=== PATIENT | male | born 1960 | race Caucasian/White ===

== ENCOUNTER 2016-08-22 07:32 | Emergency (ER) | payer SELFPAY ==
[2016-08-22 07:36] VITALS: BP 159/94
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
[2016-08-22] MEDS ORDERED: Ibuprofen TAB* 600 MG PO ONE (09:50)
== END 2016-08-22 10:07 | disposition home or self-care (01) ==
LOC: ED 07:32
DX: M54.5 Low back pain (principal); F17.210 Nicotine dependence, cigarettes, uncomplicated; R20.9 Unspecified disturbances of skin sensation; M79.1 Myalgia
CPT/HCPCS: 99282; A9270-GY

== ENCOUNTER 2016-08-27 07:29 | Emergency (ER) | payer MEDICAID ==
[2016-08-27] MEDS ORDERED: oxyCODONE/Acetamin 5/325 MG* TAB PO ONE (07:55)
[2016-08-27] MEDS ORDERED: Methocarbamol TAB* 500 MG PO ONE (07:55)
[2016-08-27] MEDS ORDERED: Ketorolac INJ* 60 MG/2 ML VIAL IM ONE (07:56)
[2016-08-27] MEDS ORDERED: predniSONE TAB* 20 MG PO ONE (07:57)
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
[2016-08-27 10:27] VITALS: BP 147/97
== END 2016-08-27 10:25 | disposition home or self-care (01) ==
LOC: ED 07:29
DX: M54.40 Lumbago with sciatica, unspecified side (principal); Z72.0 Tobacco use; I10 Essential (primary) hypertension; Z86.19 Personal history of other infectious and parasitic diseases
CPT/HCPCS: 96372; 99282; A9270-GY; J1885; J7512

== ENCOUNTER 2016-09-09 19:38 | Emergency (ER) | payer MEDICAID ==
[2016-09-09 21:49] LABS: Hematocrit 44 % (42-52); Hemoglobin 14.6 g/dl (14.0-18.0); Mean Corpuscular HGB Conc 33 g/dl (31-36); Mean Corpuscular Hemoglobin 33 pg (27-31); Mean Corpuscular Volume 99 fL (80-94); Mean Platelet Volume 8 um3 (7.4-10.4); Red Blood Count 4.44 10^6/ul (4.0-5.4); Red Cell Distribution Width 13 % (10.5-15); White Blood Count 13.1 10^3/ul (3.5-10.8)
[2016-09-09 22:04] LABS: Albumin 4.3 g/dL (3.2-5.2); Calcium 9.1 mg/dL (8.6-10.3); EGFR African American 147.1 (>60); EGFR Non-African American 114.4 (>60); Globulin 2.6 g/dL (2-4); Potassium 3.6 mmol/L (3.5-5.0); Total Bilirubin 0.2 mg/dL (0.2-1.0); Total Protein 6.9 g/dL (6.4-8.9)
--- NOTE | 2016-09-09 22:59 | RAD ---
INDICATION: RIGHT lower extremity pain from the buttock to the ankle lateral aspect. COMPARISON: None. TECHNIQUE: Tucker scale, color Doppler, and spectral analysis of the deep veins of the RIGHT lower extremity. Vessel compression, phasicity, and augmentation assessed. REPORT: The RIGHT common femoral, great saphenous, profunda femoral, femoral, popliteal, peroneal, and posterior tibial veins are patent. Patency of the contralateral common femoral vein documented. IMPRESSION: No evidence for RIGHT lower extremity deep venous thrombosis.
--- NOTE | 2016-09-09 23:08 | RAD ---
Indication: RIGHT lower extremity pain from the buttock to the ankle along the lateral aspect. Comparison: None. Technique: RIGHT lower extremity arterial ultrasound. Report: Mild smooth margined noncalcified plaque visualized at the RIGHT common femoral artery with approximate 30% stenosis resulting. No hemodynamic significant stenosis evident from the RIGHT common femoral artery through the calf arteries. Patent profunda femoral, superficial femoral, popliteal, anterior tibial, peroneal, and posterior tibial arteries documented with normal triphasic waveforms. IMPRESSION: Mild atherosclerotic plaque at the RIGHT common femoral artery without hemodynamic significant stenosis resulting.
[2016-09-10] MEDS ORDERED: Ibuprofen TAB* 600 MG PO ONE (01:26)
[2016-09-10] MEDS ORDERED: Cyclobenzaprine TAB* 10 MG PO ONE (01:26)
[2016-09-10 01:41] VITALS: BP 107/71
--- NOTE | 2016-09-10 08:12 | RAD ---
Indication: Right leg numbness. CT of the brain was performed without IV contrast. Comparison is made with previous exam dated September 20, 2014. Ventricular structures are midline. No midline shift is noted. The extra-axial spaces are unremarkable. There is no evidence of intracranial mass or hemorrhage. No other high or low density lesions are identified. Mastoid air cells and paranasal sinuses are grossly unremarkable. Patient appears to have had internal fixation and cervical fusion seen on the cloth bleaching range tender images. IMPRESSION: No intracranial mass or hemorrhage is noted.
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
== END 2016-09-10 01:37 | disposition home or self-care (01) ==
LOC: ED 19:38
DX: M54.30 Sciatica, unspecified side (principal)
CPT/HCPCS: 36415; 70450; 80053; 85025; 85610; 85730; 93005; 99282; A9270-GY

== ENCOUNTER 2016-09-11 22:19 | Inpatient (IN) | payer MEDICAID ==
[2016-09-11 23:51] LABS: Hematocrit 43 % (42-52); Hemoglobin 14.6 g/dl (14.0-18.0); Mean Corpuscular HGB Conc 34 g/dl (31-36); Mean Corpuscular Hemoglobin 33 pg (27-31); Mean Corpuscular Volume 99 fL (80-94); Mean Platelet Volume 8 um3 (7.4-10.4); Red Blood Count 4.39 10^6/ul (4.0-5.4); Red Cell Distribution Width 13 % (10.5-15)
[2016-09-12 00:05] LABS: Albumin 4.4 g/dL (3.2-5.2); BUN/Creatinine Ratio 12.2 (8-20); Calcium 9.2 mg/dL (8.6-10.3); EGFR African American 140.2 (>60); Globulin 2.9 g/dL (2-4); Potassium 3.5 mmol/L (3.5-5.0); Total Bilirubin 0.4 mg/dL (0.2-1.0); Total Protein 7.3 g/dL (6.4-8.9)
[2016-09-12] MEDS: NS 0.9% 1000 ML* 1,000 ML IV SCH ×4 (02:07→23:42)
[2016-09-12] MEDS ORDERED: Ibuprofen TAB* 600 MG PO ONE (06:14)
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
--- NOTE | 2016-09-12 08:03 | RAD ---
HISTORY: Back pain, bilateral leg pain COMPARISONS: None TECHNIQUE: Multiple contiguous axial CT scans were obtained of the lumbar spine without intravenous contrast, with coronal and sagittal multiplanar reformations. FINDINGS: SPINAL CANAL: Evaluation of the central canal is limited on CT technique; however, there is no obvious canalicular mass or epidural hemorrhage. ALIGNMENT: There is trace retrolisthesis of L2 on L3. VERTEBRAL BODIES: There is diffuse osteopenia. Is multilevel anterolateral marginal osteophyte formation with sclerotic reactive endplate changes most pronounced at L4-L5 JOINTS: There is diffuse facet osteoarthritic change, most pronounced at L5-S1 and L4-L5 MUSCULATURE: Unremarkable INTERVERTEBRAL DISCS: There is diffuse loss of intervertebral disc height throughout the spine. AXIAL IMAGES: T12-L1: There is no osseous neural foraminal narrowing or central canal stenosis. L1-L2: There is no osseous neural foraminal narrowing or central canal stenosis. L2-L3: There is a left paracentral posterior osteophyte measuring 0.3 cm in depth. There is moderate bilateral neural foraminal narrowing. There is no osseous central canal stenosis. L3-L4: There is a central disc extrusion measuring approximately 0.7 cm in depth. There is bilateral facet hypertrophy. There is moderate bilateral neural foraminal narrowing. There is moderate to severe narrowing of the central canal. L4-L5: There is bilateral facet hypertrophy. There is marginal osteophyte formation at the neural foramina bilaterally. There is severe bilateral neuroforaminal narrowing. There is mild narrowing of the central canal. L5-S1: There is bilateral facet hypertrophy. There is no osseous neural foraminal narrowing or central canal stenosis. SOFT TISSUES: There is a radiopaque foreign body in the soft tissues posterior to the left L3-L4 facet joint consistent with history of penetrating trauma OTHER: None IMPRESSION: 1. DEGENERATIVE DISC DISEASE AND OSTEOARTHRITIS. 2. THERE IS A CENTRAL DISC EXTRUSION AT L3-L4. 3. THERE IS NARROWING OF THE CENTRAL CANAL AT L3-L4 AND L4-L5 DESCRIBED ABOVE. 4. THERE IS MULTILEVEL NEURAL FORAMINAL NARROWING DESCRIBED ABOVE,
[2016-09-12] MEDS ORDERED: Ketorolac INJ* 15 MG/ML 1 ML VIAL IV PUSH PRN (08:54)
[2016-09-12] MEDS ORDERED: Cyclobenzaprine TAB* 10 MG PO PRN (08:55)
[2016-09-12] MEDS ORDERED: Lidocaine PATCH 5%* 1 PATCH TRANSDERM SCH (09:00)
[2016-09-12] MEDS ORDERED: LORazepam TAB(*) 1 MG PO SCH (09:00)
[2016-09-12] MEDS: Multivitamins/Minerals TAB PO SCH (10:01)
[2016-09-12] MEDS: Enoxaparin(*) 40 MG/0.4 ML SYR SUBCUT SCH (10:01)
[2016-09-12] MEDS: Folic Acid TAB* 1 MG PO SCH (10:01)
[2016-09-12] MEDS: Acetaminophen TAB* 325 MG PO SCH ×3 (10:01→21:07)
[2016-09-12] MEDS: Thiamine TAB* 100 MG TAB PO SCH (10:01)
[2016-09-12] MEDS: Gabapentin CAP(*) 100 MG PO SCH ×3 (10:02→21:07)
--- NOTE | 2016-09-12 13:36 | HP ---
CC: Dr. Solomon HISTORY AND PHYSICAL: DATE OF ADMISSION: 09/12/16 PRIMARY CARE PHYSICIAN: Dr. Solomon. CHIEF COMPLAINT: Back pain. HISTORY OF PRESENT ILLNESS: Mr. Segundo is a 55-year-old male with past medical history of hypertension, who presents to the hospital with worsening of his ongoing back pain. The patient states his symptoms began about a week and a half ago, although he has been seen in the ED for this starting about 3 weeks ago. The patient states he has had pain in the low back that has been shooting down both legs and associated numbness and tingling in the legs. He cannot recall any inciting trauma that started this. He states he has never had pain like this before. He saw Dr. Solomon for this pain and he states he was given ibuprofen and cyclobenzaprine. On review of medications, it seems like he was also on a Medrol Dosepak as an outpatient as well as some oxycodone from the emergency department. He states that he has not had any improvement in his pain and continues to have numbness, tingling and is now having a significant difficulty walking. This is his fourth ED visit in the past 3 weeks. He denies any urinary symptoms associated with his pain. The pain originates in the low back and radiates down the legs. He initially felt it was worse on the right; however, today, it seems to be a little bit worse on the left. He states that he thought he had a steroid shot here in the emergency department; however, looking back into the system, it looks like this was probably an intramuscular Toradol, as he said he got it in the arm. The patient's alcohol level was noted to be high and he does endorse drinking somewhere between 2 to 4 beers daily. He denies any history of alcohol withdrawal symptoms. Denies any fever, chills, chest pain, shortness of breath, nausea, vomiting, abdominal pain, dysuria, headache, bleeding in the urine or in the bowels. PAST MEDICAL HISTORY: Hypertension. PAST SURGICAL HISTORY: Neck surgery after a fall down the stairs about a year and a half ago. ALLERGIES: The patient reports no known drug allergies. FAMILY HISTORY: Father was an alcoholic. His mother at 40 of unknown causes. SOCIAL HISTORY: Significant for 1 pack per day smoking for about 25 years. He states he will drink between 12 to 24 beers in a week, up to 3 to 4 in a day, but he states never more than that. No history of alcohol withdrawal symptoms. No illicit drug use. REVIEW OF SYSTEMS: A 12-point review of systems is negative except for that is noted in the HPI. PHYSICAL EXAMINATION GENERAL: Mr. Segundo is a 55-year-old male lying in bed in no apparent distress. VITAL SIGNS: On admission: Temperature 97.4, heart rate 97, respiratory rate 16, O2 saturation 97% on room air, blood pressure 134/88. HEENT: Pupils are equal, round, reactive to light and accommodation. Anicteric sclerae. Dry mucous membranes. LUNGS: With some faint wheezing appreciated diffusely with good air movement. CARDIOVASCULAR: Regular rate and rhythm. S1 and S2 present. No murmurs, gallops, or rubs. ABDOMEN: Soft, nontender, nondistended. Bowel sounds are positive. EXTREMITIES: No cyanosis, clubbing, or edema. MUSCULOSKELETAL: The patient reports no tenderness to palpation in the low back. No point tenderness over the spine. He has pain in the back with active leg raise on the left, none on the right. He has good strength in bilateral lower extremities. Reports diminished sensation and a tingly feeling on the right foot and lateral right calf, none in the thighs. Passive leg raise does not elicit any pain in either leg. DIAGNOSTIC STUDIES/LAB DATA: White blood cell count of 14, hematocrit of 43, platelets of 279. INR of 0.88. Sodium of 129, potassium of 3.5, chloride of 99 , carbon dioxide of 22, BUN of 9, creatinine of 0.74. LFTs within normal limits. Troponin of 0. Serum alcohol of 293. EKG personally reviewed shows normal sinus rhythm. CT of the lumbar spine shows degenerative disk disease and osteoarthritis and central disk extrusion at L3-L4, narrowing of the central canal at L3-L4 and L4-L5, multilevel neuroforaminal narrowing. Imaging from 09/09/[address] of the head that was negative, right lower extremity Doppler that was negative and a right lower extremity arterial study that showed a mild common femoral artery plaque. ASSESSMENT AND PLAN: Low back pain, likely due to spinal stenosis in a 55-year- old man with past medical history of hypertension and alcohol abuse. 1. Back pain, likely due to spinal stenosis. The patient has come repeatedly to the ED and seems to be having difficulty ambulating as an outpatient. I do not think there is any acute surgical needs at this time. He is supposed to be going to outpatient physical therapy today, but felt like he could not make it. We will order PT here in the hospital. We will start the patient on around- the-clock Tylenol, gabapentin, and Flexeril. We will also start a lidocaine patch. We will likely treat conservatively at this time. We will treat with Toradol 50 mg IV q.6 hours as needed for pain. We will also put the patient on a PPI at this time. 2. Alcohol abuse. Serum alcohol was 293 here in the hospital. The patient denies any history of alcohol withdrawal. We will monitor on [facility] protocol. We will start thiamine, folate, and multivitamin. 3. Hypertension. Blood pressures are stable at this time. We will hold on the patient's home lisinopril. 4. DVT prophylaxis: Lovenox subcu. 5. Code status: The patient is a full code. TIME SPENT: Total time spent on this admission was 45 minutes, with over half the time spent [id number] with the patient in counseling and coordinating care. [id number]/[facility] #: [id number] BEHZAD
[2016-09-12] MEDS: Lidocaine Patch REMOVE* 1 NOTE MISC SCH (22:00)
[2016-09-13] MEDS: Omeprazole CAP* 20 MG PO SCH (05:02)
[2016-09-13] MEDS: NS 0.9% 1000 ML* 1,000 ML IV SCH ×2 (06:29→13:23)
[2016-09-13 06:59] LABS: Hematocrit 39 % (42-52); Mean Corpuscular HGB Conc 34 g/dl (31-36); Mean Corpuscular Hemoglobin 34 pg (27-31); Mean Corpuscular Volume 99 fL (80-94); Mean Platelet Volume 8 um3 (7.4-10.4); Red Blood Count 3.88 10^6/ul (4.0-5.4); Red Cell Distribution Width 13 % (10.5-15); White Blood Count 7.6 10^3/ul (3.5-10.8)
[2016-09-13 07:15] LABS: BUN/Creatinine Ratio 13.5 (8-20); EGFR African American 140.2 (>60); Potassium 3.9 mmol/L (3.5-5.0)
[2016-09-13] MEDS: Folic Acid TAB* 1 MG PO SCH (09:44)
[2016-09-13] MEDS: Acetaminophen TAB* 325 MG PO SCH ×3 (09:44→20:26)
[2016-09-13] MEDS: Multivitamins/Minerals TAB PO SCH (09:44)
[2016-09-13] MEDS: Enoxaparin(*) 40 MG/0.4 ML SYR SUBCUT SCH (09:44)
[2016-09-13] MEDS: Gabapentin CAP(*) 100 MG PO SCH ×3 (09:44→20:26)
[2016-09-13] MEDS: Thiamine TAB* 100 MG TAB PO SCH (09:44)
[2016-09-13] MEDS ORDERED: chlordiazePOXIDE CAP* 25 MG PO PRN (16:17)
--- NOTE | 2016-09-13 16:23 | PN ---
Subjective Date of Service: 09/13/16 Interval History: Pain in back better. Pt states he was in rehab a long time ago. He feels he doesn't drink too much, only 1 or 2 6-packs a day, 2 when he is with friends. Objective Active Medications: Acetaminophen (Tylenol Tab*) 975 mg PO TID [facility] Last Admin: 09/13/16 13:39 Dose: 975 mg Chlordiazepoxide (Librium Cap*) 25 mg PO TID [facility] Chlordiazepoxide (Librium Cap*) 25 mg PO Q3H PRN PRN Reason: AGITATION/ANXIETY Cyclobenzaprine HCl (Flexeril Tab*) 10 mg PO TID PRN PRN Reason: SPASMS Enoxaparin Sodium (Lovenox(*)) 40 mg SUBCUT Q24H [facility] Last Admin: 09/13/16 09:44 Dose: 40 mg Folic Acid (Folvite Tab*) 1 mg PO DAILY [facility] Last Admin: 09/13/16 09:44 Dose: 1 mg Gabapentin (Neurontin Cap(*)) 200 mg PO TID [facility] Last Admin: 09/13/16 13:38 Dose: 200 mg Ketorolac Tromethamine (Toradol Inj*) 15 mg IV PUSH Q6H PRN PRN Reason: PAIN Lidocaine (Lidoderm 5% Patch*) 1 patch TRANSDERM .ON 0900 OFF AT 2100 [facility] Multivitamins/Minerals (Theragran/Minerals Tab*) 1 tab PO DAILY [facility] Last Admin: 09/13/16 09:44 Dose: 1 tab Omeprazole (Prilosec Cap*) 20 mg PO DAILY@0600 [facility] Last Admin: 09/13/16 05:02 Dose: 20 mg Pharmacy Profile Note (Lidocaine Patch Remove*) 1 note N/A 2099 [facility] Last Admin: 09/12/16 22:00 Dose: Not Given Thiamine HCl (Vitamin B-1 Tab*) 100 mg PO DAILY [facility] Last Admin: 09/13/16 09:44 Dose: 100 mg Vital Signs 09/12/16 09/12/16 09/12/16 17:01 19:34 20:00 Temperature 97.9 F 98.1 F Pulse Rate 91 90 Respiratory 18 22 20 Rate Blood Pressure 143/84 162/99 (mmHg) O2 Sat by Pulse 94 97 Oximetry 09/12/16 09/12/16 09/12/16 20:54 21:07 23:07 Temperature Pulse Rate 87 Respiratory 20 20 18 Rate Blood Pressure 155/96 (mmHg) O2 Sat by Pulse 95 Oximetry 09/12/16 09/13/16 09/13/16 23:20 00:59 03:18 Temperature 97.6 F 97.6 F 97.7 F Pulse Rate 88 82 81 Respiratory 16 16 16 Rate Blood Pressure 156/102 174/104 164/90 (mmHg) O2 Sat by Pulse 95 95 95 Oximetry 09/13/16 09/13/16 09/13/16 04:59 07:19 08:00 Temperature 97.8 F 97.4 F Pulse Rate 80 77 Respiratory 16 18 16 Rate Blood Pressure 151/101 155/94 (mmHg) O2 Sat by Pulse 96 97 Oximetry 09/13/16 09/13/16 09/13/16 09:23 09:44 11:21 Temperature Pulse Rate 83 87 Respiratory 16 16 Rate Blood Pressure 165/96 151/95 (mmHg) O2 Sat by Pulse 97 96 Oximetry 09/13/16 09/13/16 09/13/16 11:44 13:26 13:38 Temperature Pulse Rate 88 Respiratory 16 16 Rate Blood Pressure 150/102 (mmHg) O2 Sat by Pulse 97 Oximetry 09/13/16 13:45 Temperature Pulse Rate 87 Respiratory Rate Blood Pressure 152/97 (mmHg) O2 Sat by Pulse Oximetry Oxygen Devices in Use Now: None Appearance: Alert, partly up in bed. In good spirits. Looks comfortable. Eyes: No Scleral Icterus Ears/Nose/Mouth/Throat: Clear Oropharnyx, Mucous Membranes Moist Neck: NL Appearance and Movements; NL JVP, No Thyroid Enlargement, Masses Respiratory: Symmetrical Chest Expansion and Respiratory Effort, Clear to Auscultation, Clear to Percussion Extremities: No Clubbing, Cyanosis, - - R ankle sl bruised, sl swollen and painful Skin: No Rash or Ulcers, No Nodules or Sclerosis Neurological: Alert and Oriented x 3, NL Sensation - No tremor. Result Diagrams: 09/13/16 06:39 09/13/16 06:39 Additional Lab and Data: Lab Results 09/11/16 09/11/16 09/11/16 Range/Units 23:40 23:40 23:40 WBC 14.0 H (3.5-10.8) 10^3/ul RBC 4.39 (4.0-5.4) 10^6/ul Hgb 14.6 (14.0-18.0) g/dl Hct 43 (42-52) % MCV 99 H (80-94) fL MCH 33 H (27-31) pg MCHC 34 (31-36) g/dl RDW 13 (10.5-15) % Plt Count 279 (150-450) 10^3/ul MPV 8 (7.4-10.4) um3 Neut % (Auto) 75.0 (38-83) % Lymph % (Auto) 17.3 L (25-47) % Eddy % (Auto) 6.5 (1-9) % Eos % (Auto) 0.9 (0-6) % Baso % (Auto) 0.3 (0-2) % Absolute Neuts (auto) 10.5 H (1.5-7.7) 10^3/ul Absolute Lymphs (auto) 2.4 (1.0-4.8) 10^3/ul Absolute Monos (auto) 0.9 H (0-0.8) 10^3/ul Absolute Eos (auto) 0.1 (0-0.6) 10^3/ul Absolute Basos (auto) 0 (0-0.2) 10^3/ul Absolute Nucleated RBC 0.01 10^3/ul Nucleated RBC % 0 INR (Anticoag Therapy) 0.88 L (0.89-1.11) APTT 33.2 (26.0-36.3) seconds Sodium 129 L (133-145) mmol/L Potassium 3.5 (3.5-5.0) mmol/L Chloride 99 L (101-111) mmol/L Carbon Dioxide 22 (22-32) mmol/L Anion Gap 8 (2-11) mmol/L BUN 9 (6-24) mg/dL Creatinine 0.74 (0.67-1.17) mg/dL Est GFR ( Amer) 140.2 (>60) Est GFR (Non-Af Amer) 109.0 (>60) BUN/Creatinine Ratio 12.2 (8-20) Glucose 81 (70-100) mg/dL Calcium 9.2 (8.6-10.3) mg/dL Magnesium 2.0 (1.9-2.7) mg/dL Total Bilirubin 0.40 (0.2-1.0) mg/dL AST 20 (13-39) U/L ALT 22 (7-52) U/L Alkaline Phosphatase 73 (34-104) U/L Total Creatine Kinase 189 (10-223) U/L Troponin I 0.00 (<0.04) ng/mL Total Protein 7.3 (6.4-8.9) g/dL Albumin 4.4 (3.2-5.2) g/dL Globulin 2.9 (2-4) g/dL Albumin/Globulin Ratio 1.5 (1-3) Serum Alcohol 293 H (<10) mg/dL Assess/Plan/Problems-Billing Assessment: - Patient Problems (1) Back pain Current Visit: Yes Status: Acute Code(s): M54.9 - DORSALGIA, UNSPECIFIED SNOMED Code(s): 068702796 Comment: Present about 1.5 yrs, since his neck surgery. Seems to do OK with very little analgesics here. Fup Dr. duffy. CT lumbar spine showed minor abnormalitites. (2) Alcohol abuse Current Visit: Yes Status: Acute Code(s): F10.10 - ALCOHOL ABUSE, UNCOMPLICATED SNOMED Code(s): 49458278 Comment: SW consult entered. (3) Tobacco abuse Current Visit: Yes Status: Acute Code(s): Z72.0 - TOBACCO USE SNOMED Code( s): 608126715 Comment: Pt advised to quit smoking and avoid second hand smoke.
[2016-09-13] MEDS: chlordiazePOXIDE CAP* 25 MG PO SCH (20:26)
[2016-09-13] MEDS: Lidocaine Patch REMOVE* 1 NOTE MISC SCH (20:28)
[2016-09-14] MEDS: Omeprazole CAP* 20 MG PO SCH (05:20)
[2016-09-14 07:19] VITALS: BP 154/101
[2016-09-14] MEDS: Thiamine TAB* 100 MG TAB PO SCH (08:31)
[2016-09-14] MEDS: Folic Acid TAB* 1 MG PO SCH (08:32)
[2016-09-14] MEDS: chlordiazePOXIDE CAP* 25 MG PO SCH (08:32)
[2016-09-14] MEDS: Enoxaparin(*) 40 MG/0.4 ML SYR SUBCUT SCH (08:32)
[2016-09-14] MEDS: Gabapentin CAP(*) 100 MG PO SCH (08:32)
[2016-09-14] MEDS: Multivitamins/Minerals TAB PO SCH (08:32)
[2016-09-14] MEDS: Acetaminophen TAB* 325 MG PO SCH (08:32)
[2016-09-14] MEDS ORDERED: Lisinopril TAB* 10 MG PO SCH (10:00)
--- NOTE | 2016-09-14 10:27 | DCNOTE ---
"Subjective Date of Service: 09/14/16 Interval History: Little back pain. No new c/o, anxious to go home. Objective Active Medications: Acetaminophen (Tylenol Tab*) 975 mg PO TID [facility] Last Admin: 09/14/16 08:32 Dose: 975 mg Chlordiazepoxide (Librium Cap*) 25 mg PO TID [facility] Last Admin: 09/14/16 08:32 Dose: 25 mg Chlordiazepoxide (Librium Cap*) 25 mg PO Q3H PRN PRN Reason: AGITATION/ANXIETY Cyclobenzaprine HCl (Flexeril Tab*) 10 mg PO TID PRN PRN Reason: SPASMS Enoxaparin Sodium (Lovenox(*)) 40 mg SUBCUT Q24H [facility] Last Admin: 09/14/16 08:32 Dose: 40 mg Folic Acid (Folvite Tab*) 1 mg PO DAILY [facility] Last Admin: 09/14/16 08:32 Dose: 1 mg Gabapentin (Neurontin Cap(*)) 200 mg PO TID [facility] Last Admin: 09/14/16 08:32 Dose: 200 mg Ketorolac Tromethamine (Toradol Inj*) 15 mg IV PUSH Q6H PRN PRN Reason: PAIN Lidocaine (Lidoderm 5% Patch*) 1 patch TRANSDERM .ON 0900 OFF AT 2100 [facility] Lisinopril (Prinivil Tab*) 20 mg PO DAILY [facility] Multivitamins/Minerals (Theragran/Minerals Tab*) 1 tab PO DAILY [facility] Last Admin: 09/14/16 08:32 Dose: 1 tab Omeprazole (Prilosec Cap*) 20 mg PO DAILY@0600 [facility] Last Admin: 09/14/16 05:20 Dose: 20 mg Pharmacy Profile Note (Lidocaine Patch Remove*) 1 note N/A 2099 [facility] Last Admin: 09/13/16 20:28 Dose: Not Given Thiamine HCl (Vitamin B-1 Tab*) 100 mg PO DAILY [facility] Last Admin: 09/14/16 08:31 Dose: 100 mg Vital Signs 09/13/16 09/13/16 09/13/16 11:21 11:44 13:26 Temperature Pulse Rate 87 88 Respiratory 16 Rate Blood Pressure 151/95 150/102 (mmHg) O2 Sat by Pulse 96 97 Oximetry 09/13/16 09/13/16 09/13/16 13:38 13:45 15:25 Temperature 97.9 F Pulse Rate 87 87 Respiratory 16 15 Rate Blood Pressure 152/97 132/105 (mmHg) O2 Sat by Pulse 96 Oximetry 09/13/16 09/13/16 09/13/16 15:38 19:15 20:00 Temperature 98.1 F Pulse Rate 91 Respiratory 16 20 18 Rate Blood Pressure 159/97 (mmHg) O2 Sat by Pulse 95 Oximetry 09/13/16 09/13/16 09/13/16 20:26 22:26 23:39 Temperature 97.4 F Pulse Rate 90 Respiratory 18 18 16 Rate Blood Pressure 164/103 (mmHg) O2 Sat by Pulse 97 Oximetry 09/14/16 09/14/16 09/14/16 07:18 08:00 08:32 Temperature 97.2 F Pulse Rate 80 Respiratory 16 16 16 Rate Blood Pressure 154/101 (mmHg) O2 Sat by Pulse 96 Oximetry Oxygen Devices in Use Now: None Appearance: Alert, sitting up in bed. In good spirits. Looks comfortable. Eyes: No Scleral Icterus Neck: NL Appearance and Movements; NL JVP, No Thyroid Enlargement, Masses Respiratory: Symmetrical Chest Expansion and Respiratory Effort, Clear to Auscultation, Clear to Percussion Cardiovascular: NL Sounds; No Murmurs; No JVD, RRR, No Edema, - Extremities: No Edema, No Clubbing, Cyanosis, - Skin: No Rash or Ulcers, No Nodules or Sclerosis, - Neurological: Alert and Oriented x 3, NL Sensation Result Diagrams: 09/13/16 06:39 09/13/16 06:39 Additional Lab and Data: Lab Results 09/11/16 09/11/16 09/11/16 Range/Units 23:40 23:40 23:40 WBC 14.0 H (3.5-10.8) 10^3/ul RBC 4.39 (4.0-5.4) 10^6/ul Hgb 14.6 (14.0-18.0) g/dl Hct 43 (42-52) % MCV 99 H (80-94) fL MCH 33 H (27-31) pg MCHC 34 (31-36) g/dl RDW 13 (10.5-15) % Plt Count 279 (150-450) 10^3/ul MPV 8 (7.4-10.4) um3 Neut % (Auto) 75.0 (38-83) % Lymph % (Auto) 17.3 L (25-47) % Rains % (Auto) 6.5 (1-9) % Eos % (Auto) 0.9 (0-6) % Baso % (Auto) 0.3 (0-2) % Absolute Neuts (auto) 10.5 H (1.5-7.7) 10^3/ul Absolute Lymphs (auto) 2.4 (1.0-4.8) 10^3/ul Absolute Monos (auto) 0.9 H (0-0.8) 10^3/ul Absolute Eos (auto) 0.1 (0-0.6) 10^3/ul Absolute Basos (auto) 0 (0-0.2) 10^3/ul Absolute Nucleated RBC 0.01 10^3/ul Nucleated RBC % 0 INR (Anticoag Therapy) 0.88 L (0.89-1.11) APTT 33.2 (26.0-36.3) seconds Sodium 129 L (133-145) mmol/L Potassium 3.5 (3.5-5.0) mmol/L Chloride 99 L (101-111) mmol/L Carbon Dioxide 22 (22-32) mmol/L Anion Gap 8 (2-11) mmol/L BUN 9 (6-24) mg/dL Creatinine 0.74 (0.67-1.17) mg/dL Est GFR ( Amer) 140.2 (>60) Est GFR (Non-Af Amer) 109.0 (>60) BUN/Creatinine Ratio 12.2 (8-20) Glucose 81 (70-100) mg/dL Calcium 9.2 (8.6-10.3) mg/dL Magnesium 2.0 (1.9-2.7) mg/dL Total Bilirubin 0.40 (0.2-1.0) mg/dL AST 20 (13-39) U/L ALT 22 (7-52) U/L Alkaline Phosphatase 73 (34-104) U/L Total Creatine Kinase 189 (10-223) U/L Troponin I 0.00 (<0.04) ng/mL Total Protein 7.3 (6.4-8.9) g/dL Albumin 4.4 (3.2-5.2) g/dL Globulin 2.9 (2-4) g/dL Albumin/Globulin Ratio 1.5 (1-3) Serum Alcohol 293 H (<10) mg/dL Assess/Plan/Problems-Billing Assessment: - Patient Problems (1) Back pain Current Visit: Yes Status: Acute Code(s): M54.9 - DORSALGIA, UNSPECIFIED SNOMED Code(s): 136972777 Comment: Present about 1.5 yrs, since his neck surgery. May have responded to gabapentin. Fup Dr. duffy. CT lumbar spine showed minor abnormalitites. (2) Alcohol abuse Current Visit: Yes Status: Acute Code(s): F10.10 - ALCOHOL ABUSE, UNCOMPLICATED SNOMED Code(s): 49065376 Comment: SW consult entered. (3) Tobacco abuse Current Visit: Yes Status: Acute Code(s): Z72.0 - TOBACCO USE SNOMED Code( s): 729449747 Comment: Pt advised to quit smoking and avoid second hand smoke. Status and Disposition: Discharge now. Fup Dr. Duffy. This report was requested by: Nicolas Ahumada | Reference #: [id number] Others' Prescriptions Patient Name: Michael Segundo Date: 1960 Address: [address] [place] [address] Sex: Male Rx Written Rx Dispensed Drug Quantity Days Supply Prescriber Name 08/22/2016 08/25/2016 oxycodone-acetaminophen 5-325 mg tablet 20 4 Nnamdi Bernal MD 02/03/2016 02/03/2016 hydrocodone-acetaminophen 5-325 tablet 60 30 Torres Duffy MD 12/15/2015 12/15/2015 hydrocodone-acetaminophen 5-325 tablet 60 30 Valentina Salamanca"
--- NOTE | 2016-09-14 10:28 | PN ---
Progress Note - Progress Note Note: Time spent on discharge 45 minutes.
--- NOTE | 2016-09-15 00:54 | DS ---
DISCHARGE SUMMARY: DATE OF ADMISSION: DATE OF DISCHARGE: 09/14/16 HISTORY OF PRESENT ILLNESS: This 55-year-old man presented with back pain. He had been seen in the ER 4 times in the past 2 weeks counting the day of admission. The pain radiated down both legs. He had some intramuscular Toradol in the ER on at least one of his visits. He stated he drank 2 to 4 beers daily. Of note, his father was an alcoholic. The patient had a CT scan of the lumbar spine on 09/11/16. This showed degenerative disk disease and osteoarthritis and some central disk extrusion at L3- L4, narrowing of the central canal at L3-L4 and L4-L5 and multilevel neuroforaminal narrowing. The patient was started on gabapentin 200 mg t.i.d. He did quite well in the hospital and did not really require any other analgesia. He was ambulatory and feeling much better. FINAL DIAGNOSES: 1. Back pain. 2. Alcohol abuse. 3. Tobacco abuse. 4. Hypertension. I note the patient was seen by the social economist regarding his alcoholism. DISCHARGE MEDICATIONS: 1. Gabapentin 200 mg t.i.d. 2. Thiamine 100 mg daily. 3. Chlordiazepoxide 25 mg at h.s. for 3 days. 4. Acetaminophen 325 mg every 4 hours p.r.n. 5. Cyclobenzaprine 10 mg t.i.d. p.r.n. 6. Oxycodone and acetaminophen 5/325 one every 4 hours p.r.n. 7. Ibuprofen 600 mg every 8 hours p.r.n. 8. Lisinopril 20 mg daily. CC: Dr. Solomon* [id number]/[facility] #: [id number] [facility]PITALAmanda
== END 2016-09-14 12:00 | disposition home or self-care (01) | DRG 347 ==
LOC: ED 22:19 → MED 09-12 07:34
PROVIDERS: ADMIT Hospitalist; ATTEND Internal Medicine
DX: M54.9 Dorsalgia, unspecified (principal); I10 Essential (primary) hypertension; M51.36 Other intervertebral disc degeneration, lumbar region; F17.210 Nicotine dependence, cigarettes, uncomplicated; F10.10 Alcohol abuse, uncomplicated; Y90.8 Blood alcohol level of 240 mg/100 ml or more; B19.20 Unspecified viral hepatitis C without hepatic coma; M47.9 Spondylosis, unspecified; M48.06 Spinal stenosis, lumbar region; M51.26 Other intervertebral disc displacement, lumbar region; Z81.1 Family history of alcohol abuse and dependence; Z81.8 Family history of other mental and behavioral disorders
CPT/HCPCS: 36415; 72131; 80048; 80053; 80320; 82550; 83735; 84484; 85025; 85610; 85730; 93005; A9270-GY; G0480; J1650

== ENCOUNTER 2016-10-12 23:24 | Emergency (ER) | payer OTHER ==
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
[2016-10-13 01:51] VITALS: BP 124/94
== END 2016-10-13 01:51 | disposition home or self-care (01) ==
LOC: ED 23:24
DX: F10.129 Alcohol abuse with intoxication, unspecified (principal); F17.210 Nicotine dependence, cigarettes, uncomplicated; R20.0 Anesthesia of skin
CPT/HCPCS: 99282

== ENCOUNTER → 2017-02-09 05:13 | Emergency (ER) | payer SELFPAY ==
[~2017-02-09 05:13] MED LIST: Ketorolac INJ* 60 MG/2 ML VIAL IM ONE; Ketorolac INJ* 60 MG/2 ML VIAL ONE; oxyCODONE/Acetamin 5/325 MG* TAB PO ONE
[2017-02-09 05:15] VITALS: BP 117/71
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
== END | disposition home or self-care (01) ==
LOC: ED 05:13
DX: S42.002A Fracture of unspecified part of left clavicle, initial encounter for closed fracture (principal); M25.512 Pain in left shoulder; F17.210 Nicotine dependence, cigarettes, uncomplicated; W19.XXXA Unspecified fall, initial encounter; Y93.9 Activity, unspecified; Y92.9 Unspecified place or not applicable
CPT/HCPCS: 96372; 99282; A9270-GY; J1885

== ENCOUNTER 2017-02-22 12:51 | Day surgery (SDC) | payer MEDICAID ==
[~2017-02-22 12:51] MED LIST changes: +Buffered Lidocaine 0.9% SYRIN* 5 ML/SYR SYRINGE INTRADERM ONE; +Dexamethasone IV* 4 MG/ML 1 ML (4 MG) IV SLOW PU ONE; +Famotidine IV* 10 MG/ML 2 ML (20 mg) IV ONE; -Ketorolac INJ* 60 MG/2 ML VIAL IM ONE; -Ketorolac INJ* 60 MG/2 ML VIAL ONE; -oxyCODONE/Acetamin 5/325 MG* TAB PO ONE
[2017-02-22] MEDS ORDERED: Famotidine IV* 10 MG/ML 2 ML (20 mg) ONE ×2 (12:54)
[2017-02-22] MEDS ORDERED: Buffered Lidocaine 0.9% SYRIN* 5 ML/SYR SYRINGE ONE ×2 (12:54)
[2017-02-22] MEDS ORDERED: Dexamethasone IV* 4 MG/ML 1 ML (4 MG) ONE ×2 (12:54)
[2017-02-22] MEDS ORDERED: ceFAZolin 2 GM PREMIX (*) 50 ML IVPB ONE ×2 (12:54)
[2017-02-22] MEDS ORDERED: Bupivacaine 0.25% SDV* 30 ML ONE ×4 (14:30→16:56)
[2017-02-22] MEDS ORDERED: Midazolam* 1 MG/ML 2 ML VIAL (2 MG) ONE ×2 (14:48)
[2017-02-22] MEDS ORDERED: fentaNYL* 50 MCG/ML 2 ML VIAL (100 MCG VIAL) ONE ×2 (14:48)
[2017-02-22] MEDS ORDERED: KETAMINE HCL* 50 MG/ML 10 ML VIAL ONE ×2 (14:48)
[2017-02-22] MEDS ORDERED: Propofol* 10 MG/ML 20 ML BTL IV PUSH ONE ×2 (14:49)
[2017-02-22] MEDS ORDERED: Ketorolac INJ* 30 MG/ML 1 ML VIAL ONE ×2 (14:49)
[2017-02-22] MEDS ORDERED: Ondansetron INJ* 2 MG/ML VIAL ONE ×2 (14:49)
[2017-02-22] MEDS ORDERED: Lidocaine 1% INJ* 10 MG/ML 30 ML SDV ONE ×2 (14:50)
[2017-02-22] MEDS ORDERED: Succinylcholine* 20 MG/ML 10 ML VIAL ONE ×2 (15:03)
[2017-02-22] MEDS ORDERED: Phenylephrine IV* 40 MCG/ML 10 ML SYRINGE ONE ×2 (16:19)
[2017-02-22] MEDS ORDERED: DiMENhydriNATE IV* 50 MG/ML VIAL IV PUSH PRN (16:26)
[2017-02-22] MEDS ORDERED: fentaNYL* 50 MCG/ML 2 ML VIAL (100 MCG VIAL) IV PRN (16:26)
[2017-02-22] MEDS ORDERED: HYDROmorphone* 1 MG/ML 1 ML SYR IV PRN (16:26)
[2017-02-22] MEDS ORDERED: Phenylephrine INJ* 10 MG/ML 1 ML VIAL (10 MG) ONE ×2 (16:31)
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
[2017-02-22] MEDS ORDERED: oxyCODONE/Acetamin 5/325 MG* TAB ONE ×2 (18:44)
[2017-02-22 19:39] VITALS: BP 132/84
--- NOTE | 2017-02-23 04:49 | OP ---
DATE OF OPERATION: 02/22/17 [facility] DATE OF : 56 SURGEON: Amando Martin MD 21 DEALER: CARLINE Maurer followed by CARLINE Thomas. An phlebotomist lab assistant was needed for the entirety of the procedure to aid in position of the arm and retraction. ANESTHESIOLOGIST: Santiago Vicente MD ANESTHESIA: General. PRE-OP DIAGNOSIS: Left displaced distal clavicle fracture. POST-OP DIAGNOSIS: Left displaced distal clavicle fracture. OPERATIVE PROCEDURE: Open reduction internal fixation, left displaced distal clavicle fracture. INDICATIONS: Michael is 56. He had a fall and fractured the distal clavicle. I had seen him in the office and I talked to him about either closed treatment with a sling or open reduction internal fixation. I talked to him about the chance of a nonunion with distal clavicle fracture such as his where it appears on the x-ray that the conoid ligament is probably ruptured, the trapezoid ligament is intact and the fracture is between the 2 ligaments. Overall, he was having quite a bit of discomfort and catching and clicking at the fracture site. He wanted the fracture fixed. I talked to him about the risk of infection, about the risk of wound problems, about the risk of symptomatic hardware, as I would probably use a superior distal clavicle plate. He understood all of this. He wished to proceed. ESTIMATED BLOOD LOSS: 20 mL. COMPLICATIONS: None. FINDINGS: As expected there was superior comminution, but there was excellent cortical apposition at the inferior and posterior cortices. DESCRIPTION OF PROCEDURE: Michael was seen in the preoperative holding area. The correct side, site, and procedure were identified. We came back to the operating room. The arm was prepped and draped in the usual fashion. The hand was wrapped with a stockinette and Coban. We had a formal time-out. I began by making a curvilinear incision in line with the clavicle on the anterior margin of the clavicle. Dissection was carried down through the subcutaneous tissue to the clavipectoral fascia. This was split in line with the clavicle with Bovie. Full-thickness subperiosteal flaps were raised off the anterior and superior clavicle. The fracture site was encountered. There was significant amount of fracture hematoma. This was irrigated out and it was cleaned with curette and rongeur and Hoyt tip suction. Once I had the fracture edges clean and the proximal and distal fragments identified, I went ahead and placed a lobster claw on the proximal fragment and a point-of- reduction clamp around the distal fragment. I went ahead and reduced the fracture. I placed a longitudinal K-wire entering through the clavicle just superior to the superior aspect of the clavicle at the AC joint and down intramedullary across the fracture site. The C-arm was brought in and the reduction was checked. I then took my superior Humberto variable angle distal clavicle plate and clamped and pinned this in place. I checked the plate position on fluoroscopy. I then placed one distal cortical screw to get excellent [id number] apposition. I then placed three 2.7-mm variable angle locking screws in the distal holes. I had excellent purchase with the screws and they locked in nicely, so I felt like I had excellent distal fixation. I then placed one screw in the most distal oblong hole in the proximal fragment and in compression mode. This was followed by a second 2.7-mm screw in compression mode through the more proximal oblong hole. This provided excellent compression across the fracture site. At this point, I went ahead and placed one more cortical screw most proximally and then one locking screw in the remaining hole proximally. I went ahead and checked final plate position and screw length and everything both clinically and fluoroscopically. Screws were all the right length and I could see them exiting not the inferior border of the clavicle. I went ahead and irrigated out the wound. The clavipectoral fascia was closed with 3-0 Polysorb suture. Skin was closed with 3-0 Monocryl suture and Steri-Strips. The operative area was infiltrated with 0.25% plain Marcaine during the closure. The wound was dressed with 4x4's and Tegaderm. The arm was placed in a sling. The patient was awoken up and taken to the recovery room in stable condition. [id number]/[facility] #: [id number] BEHZAD
== END 2017-02-22 20:42 | disposition home or self-care (01) ==
LOC: OR 12:51
PROVIDERS: ATTEND Orthopaedic Surgery Hand Surgery
DX: S42.032A Displaced fracture of lateral end of left clavicle, initial encounter for closed fracture (principal); F17.210 Nicotine dependence, cigarettes, uncomplicated; I10 Essential (primary) hypertension; W19.XXXA Unspecified fall, initial encounter; Y92.9 Unspecified place or not applicable
CPT/HCPCS: A9270-GY; C1713; J0330; J0690; J1100; J1885; J2001; J2250; J2405; J2704; J3010

== ENCOUNTER 2017-06-22 13:28 | Emergency (ER) | payer MEDICAID, OTHER ==
[2017-06-22] MEDS ORDERED: Albuterol/Ipratropium NEB.SOL* Albuterol 2.5 MG/Ipratropium 0.5 MG 3 ML INH ONE (13:45)
[2017-06-22] MEDS ORDERED: Al Hydrox/Mg Hydrox/Simet LIQ* 30 ML UDC PO ONE (13:45)
[2017-06-22] MEDS ORDERED: Famotidine TAB* 20 MG PO ONE (13:45)
--- OUTSIDE RECORDS SUMMARY | 2017-06-22 13:53 | XMS REPORT ---
:1960 External Reference #:[id number] Author Organization [facility] Address [address] [address] Phone [phone] Care Team Providers Name Role Phone [facility] Care Team Information Special Collections Librarian Unavailable Torres Solomon MD Primary Care Physician Unavailable Payers Type Date Identification Numbers Payment Provider Subscriber Commercial Effective: Policy Number: [id number] [employer] Michael Segundo 2017 [facility] PayID: [id number] [address] [address] [place] [address] Medigap Part B Expires: 2017 Policy Number: [id number] Medicaid Michaelfelicia Segundo PayID: [id number] [address] [place] [address] Problems Date Description Provider Status Onset: 02/16/2017 Closed fracture of clavicle Amando Martin MD Active Onset: 06/19/2017 Essential hypertension Magdiel Dukes M.D. Active Onset: 06/19/2017 Shoulder joint pain Magdiel Dukes M.D. Active Onset: 06/19/2017 Neck pain Magdiel Dukes M.D. Active Social History Type Date Description Comments Lives With Alone Occupation guest services representative ETOH Use 1-2 per day Smoking Patient is a current smoker, smokes every day 1 PPD Exercise Type/Frequency Exercises regularly Allergies, Adverse Reactions, Alerts Date Description Reaction Status Severity Comments 07/24/2013 NKDA active Medications Medication Date Status Form Strength Qnty SIG Indications Ordering Provider Tramadol HCL Active Tablets 50mg 30tabs three M54.2 Magdiel 017 times a [place], day as M.D. needed No Active Hx Unknown Medications 017 - 017 Percocet Hx Tablets 5-325mg 30tabs 1 by Amando 017 - conchita Martin MD every 4-6 017 hours as needed pain No Active Hx Eddie Medications 014 - [facility] Post 017 Vital Signs Date Vital Result Comment 06/19/2017 Weight 151.50 lb Heart Rate 83 /min BP Systolic Sitting 142 mmHg BP Diastolic Sitting 88 mmHg Body Temperature 98.0 F O2 % BldC Oximetry 84 % 02/16/2017 Height 62.25 inches 5'2.25" Weight 142.25 lb Heart Rate 76 /min BP Systolic Sitting 148 mmHg BP Diastolic Sitting 92 mmHg Body Temperature 97.2 F Pain Level 7 BMI (Body Mass Index) 25.8 kg/m2 10/09/2013 Height 63 inches 5'3" Weight 145.00 lb Heart Rate 79 /min BP Systolic 163 mmHg BP Diastolic 100 mmHg BMI (Body Mass Index) 25.7 kg/m2 08/28/2013 Height 63 inches 5'3" Weight 158.00 lb Heart Rate 107 /min BP Systolic 145 mmHg BP Diastolic 103 mmHg BMI (Body Mass Index) 28.0 kg/m2 08/12/2013 Height 63 inches 5'3" Weight 158.00 lb Heart Rate 89 /min BP Systolic 117 mmHg BP Diastolic 74 mmHg BMI (Body Mass Index) 28.0 kg/m2 07/24/2013 Height 63 inches 5'3" Weight 140.00 lb Heart Rate 88 /min BP Systolic 149 mmHg BP Diastolic 87 mmHg BMI (Body Mass Index) 24.8 kg/m2 Results Test Date Test Result H/L Range Note CBC No Diff 07/28/2013 White Blood Count 11.1 10^3/uL High 4.8-10.8 Red Blood Count 3.96 10^6/uL Low 4.0-5.4 Hemoglobin 13.5 g/dL Low 14.0-18.0 Hematocrit 40 % Low 42-52 Mean Corpuscular Volume 100 fL High 80-94 Mean Corpuscular Hemoglobin 34 pg High 27-31 Mean Corpuscular HGB Conc 34 g/dL 31-36 Red Cell Distribution Width 13 % 10.5-15 Platelet Count 366 10^3/uL 150-450 Mean Platelet Volume 9 um3 7.4-10.4 Basic Metabolic Panel 07/28/2013 Sodium 136 mmol/L 133-145 Potassium 4.5 mmol/L 3.5-5.0 Chloride 105 mmol/L 101-111 Co2 Carbon Dioxide 24.0 mmol/L 22-32 Anion Gap 7.0 mmol/L 2-11 Glucose 83 mg/dL 70-100 Blood Urea Nitrogen 17 mg/dL 6-24 Creatinine 0.70 mg/dL 0.50-1.40 BUN/Creatinine Ratio 24.3 High 8-20 Calcium 9.5 mg/dL 8.1-9.9 Egfr Non- 117.5 >60 Egfr 151.1 >60 1 1 Because ethnic data is not always readily available, this report includes an eGFR for both -Americans and non- Americans. The National Kidney Disease Education Program (NKDEP) does not endorse the use of the MDRD equation for patients that are not between the ages of 18 and 70, are , have extremes of body size, muscle mass, or nutritional status, or are non- or non-. According to the National Kidney Foundation, irrespective of diagnosis, the stage of the disease is based on the level of kidney function: Stage Description GFR(mL/min/1.73 m(2)) 1 Kidney damage with normal or decreased GFR 90 2 Kidney damage with mild decrease in GFR 60-89 3 Moderate decrease in GFR 30-59 4 Severe decrease in GFR 15-29 5 Kidney failure <15 (or dialysis) Procedures Date CPT Code Description Status 02/22/2017 60078 Open TX Of Clavicular FX, Incl Intrnl Fixation When Completed Performed 10/09/2013 95232 Rad Exam; Ankle Comp Completed 08/28/2013 46591 Rad Exam; Ankle Comp Completed 08/12/2013 35139 Rad Exam; Ankle Comp Completed 08/12/2013 70832 Short Leg Cast Completed 07/30/2013 46310 Open TX Of Distaltibiofibular JT Disruption W Or W/O Completed Fixation 07/30/2013 84125 Open TX Of Distaltibiofibular JT Disruption W Or W/O Completed Fixation 07/30/2013 64761 Closed TX Prox/Shaft Fibula W/O Manip Completed 07/30/2013 67320 Closed TX Prox/Shaft Fibula W/O Manip Completed 07/30/2013 95461 ORIF Open TX Medial Malleolus FX Incl Internal Fixation Completed 07/30/2013 74420 FX Tib Distal With Manipulation Completed 07/30/2013 33806 FX Tib Distal With Manipulation Completed 07/28/2013 83516 EKG, Interpretation Only Completed 07/24/2013 62096 Rad Exam; Ankle Comp Completed 07/24/2013 01825 application of short leg splint Completed Encounters Type Date Location Provider CPT E/M Dx Office Visit 02/16/2017 [facility] [place] [address] S42.002A 1:30p C.M.A. [facility] [address] M54.42 3:36p [facility] M54.41 F10.10 Office Visit 09/13/2016 3:35p [facility], Nicolas Ahumada [address] M54.42 Hospitalists Han M54.41 F10.10 Office Visit 09/12/2016 3:35p [facility], [place] [address] M54.42 Hospitalists M54.41 F10.10 Office Visit 07/24/2013 10:00a [facility] M.D. 22690 824.0 C.M.A. 824.0 Plan of Care 06/19/2017 - Magdiel Dukes M.D.M54.2 CervicalgiaNew Medication:Tramadol HCL 50 mgM25.512 Pain in left [id number] Essential (primary) hypertensionFollow up: [facility] /need to call for records
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
[2017-06-22 14:32] VITALS: BP 135/70
== END 2017-06-22 14:43 | disposition home or self-care (01) ==
LOC: ED 13:28
DX: J11.1 Influenza due to unidentified influenza virus with other respiratory manifestations (principal); K29.70 Gastritis, unspecified, without bleeding; I10 Essential (primary) hypertension; F17.210 Nicotine dependence, cigarettes, uncomplicated
CPT/HCPCS: 94640; 99282; A9270-GY

== ENCOUNTER 2017-08-30 12:48 | Emergency (ER) | payer OTHER ==
[2017-08-30] MEDS ORDERED: Nitroglycerin TAB 0.4 MG* 0.4 MG TAB SL ONE (13:19)
[2017-08-30] MEDS ORDERED: NS 0.9% 1000 ML* 1,000 ML IV ONE (13:19)
[2017-08-30] MEDS ORDERED: HYDROcodone/ACETAMIN 5-325 MG* 1 TAB PO ONE (13:19)
--- NOTE | 2017-08-30 13:35 | RAD ---
Indication: Chest pain. Single frontal view of the chest performed at 1319 hours was reviewed. Comparison is made with previous exam dated June 22, 2016. No mediastinal shift is noted. Heart is of normal size and configuration. Lung trevino appear clear. IMPRESSION: NO ACTIVE CARDIOPULMONARY DISEASE IS NOTED.
[2017-08-30 14:04] VITALS: BP 124/76
[2017-08-30 14:04] LABS: INR 0.87 (0.77-1.02)
[2017-08-30 14:08] LABS: EGFR Non-African American 126.2 (>60)
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
== END 2017-08-30 13:50 | disposition left against medical advice (07) ==
LOC: ED 12:48
DX: R07.9 Chest pain, unspecified (principal); R05 Cough; E66.9 Obesity, unspecified; I10 Essential (primary) hypertension; Z53.21 Procedure and treatment not carried out due to patient leaving prior to being seen by health care provider
CPT/HCPCS: 36415; 71045; 80053; 80320; 80329; 82550; 82553; 83605; 83690; 83735; 84443; 84484; 85379; 85610; 85730; 86140; 93005; 99283; G0480

== ENCOUNTER 2019-09-04 15:39 | Emergency (ER) | payer OTHER ==
[2019-09-04] MEDS ORDERED: Cyclobenzaprine TAB* 10 MG PO ONE (16:56)
[2019-09-04] MEDS ORDERED: Ibuprofen TAB* 600 MG PO ONE (16:56)
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
[2019-09-04 18:58] VITALS: BP 152/99
== END 2019-09-04 17:20 | disposition home or self-care (01) ==
LOC: ED 15:39
DX: M25.511 Pain in right shoulder (principal); I10 Essential (primary) hypertension; F17.210 Nicotine dependence, cigarettes, uncomplicated; Z79.899 Other long term (current) drug therapy; Z86.79 Personal history of other diseases of the circulatory system
CPT/HCPCS: 99282; A9270-GY

== ENCOUNTER 2024-05-07 16:50 | Inpatient (IN) ==
[2024-05-07] MEDS ORDERED: Albuterol HFA INHALER 8 gm MDI INH ONE (16:58)
[2024-05-07 17:20] LABS: ABS Basophils 0.1 10^3/uL (0.0-0.1); ABS Eosinophils 0.4 10^3/uL (0.0-0.5); ABS Lymphocytes 1.7 10^3/uL (1.0-4.8); ABS Monocytes 1.1 10^3/uL (0.0-1.1); ABS Neutrophils 8.1 10^3/uL (1.5-7.6); ABS Nucleated RBC 0.01 10^3/ul; Eosinophil % 3.2 %; Hematocrit 46.3 % (38-53); Hemoglobin 15.7 g/dL (13.2-16.3); Mean Corpuscular Hemoglobin 32.6 pg (27-33); Mean Corpuscular Hgb Conc 33.8 g/dL (31-36); Mean Corpuscular Volume 96.2 fL (80-97); Mean Platelet Volume 8.5 fL (7.5-11.2); Platelet Count 363 10^3/uL (150-450); Red Blood Count 4.81 10^6/uL (4.06-5.63); Red Cell Distribution Width 13.4 % (12-17); White Blood Count 11.3 10^3/uL (3.6-10.2)
[2024-05-07] MEDS: Albuterol HFA INHALER 8 gm MDI INH ONE (17:23)
[2024-05-07 17:57] LABS: Albumin 4.4 g/dL (3.2-5.2); C Reactive Protein 10.21 mg/L (<8.01); Calcium 9.6 mg/dL (8.6-10.3); Creatinine, Serum 0.65 mg/dL (0.67-1.17); Globulin 2.2 g/dL (2-4); Potassium 3.5 mmol/L (3.5-5.0); Total Bilirubin 0.7 mg/dL (0.2-1.0); Total Protein 6.6 g/dL (6.4-8.9); eGFR CKD-EPI 104.6 (>60)
[2024-05-07] MEDS ORDERED: Albuterol 2.5mg/3 ml (0.083%) NEB.SOLN INH ONE (18:57)
[2024-05-07 19:02] LABS: High Sensitivity Troponin 1 Hr 11 pg/mL (<20)
[2024-05-07] MEDS: Albuterol 2.5mg/3 ml (0.083%) NEB.SOLN INH ONE (19:13)
[2024-05-07] MEDS: Iohexol 350 (CONTRAST) 500 ML MDV IV ONE (21:54)
[2024-05-08] MEDS: cefTRIAXone 1 gm/50 mL D5W 1 GM/50 ML BAG IV SCH (00:52)
[2024-05-08] MEDS: Albuterol/Ipratropium NEB.SOL (2.5/0.5 MG) 3 ML NEB.SOLN INH SCH ×2 (01:18→13:26)
[2024-05-08] MEDS: Enoxaparin 40 MG/0.4 ML SYR SUBCUT SCH (05:49)
[2024-05-08] MEDS: methylPREDNISolone SOD SUCC 40 mg/ml 1 ml VIAL IV SCH (11:17)
[2024-05-08] MEDS: Multivitamins/Minerals TAB PO SCH (11:17)
[2024-05-08 11:53] LABS: Urine Benzodiazepine Screen None Detected (None Detect); Urine Cannabinoids Screen None Detected (None Detect); Urine Opiates Screen None Detected (None Detect)
[2024-05-08] MEDS: Azithromycin 500 mg/250 ml NS 500 MG/250 ML BAG IVPB SCH (12:51)
[2024-05-08 13:23] LABS: Hematocrit 41.6 % (38-53); Mean Corpuscular Hemoglobin 32.6 pg (27-33); Mean Corpuscular Hgb Conc 33.8 g/dL (31-36); Mean Corpuscular Volume 96.6 fL (80-97); Mean Platelet Volume 9.5 fL (7.5-11.2); Platelet Count 364 10^3/uL (150-450); Red Cell Distribution Width 13.6 % (12-17); White Blood Count 18.6 10^3/uL (3.6-10.2)
[2024-05-08 13:41] LABS: Calcium 9.6 mg/dL (8.6-10.3); Creatinine, Serum 0.69 mg/dL (0.67-1.17); Potassium 3.5 mmol/L (3.5-5.0); eGFR CKD-EPI 102.7 (>60)
[2024-05-08 14:32] LABS: ABS Basophils 0.1 10^3/uL (0.0-0.1); ABS Lymphocytes 1.4 10^3/uL (1.0-4.8); ABS Monocytes 1.8 10^3/uL (0.0-1.1); ABS Neutrophils 15.3 10^3/uL (1.5-7.6); Eosinophil % 0.1 %; Lymphocyte % 7.8 %
[2024-05-09 06:16] LABS: Hematocrit 42.2 % (38-53); Hemoglobin 14.3 g/dL (13.2-16.3); Mean Corpuscular Hgb Conc 33.8 g/dL (31-36); Mean Corpuscular Volume 97.4 fL (80-97); Mean Platelet Volume 8.5 fL (7.5-11.2); Platelet Count 347 10^3/uL (150-450); Red Blood Count 4.34 10^6/uL (4.06-5.63); Red Cell Distribution Width 14.2 % (12-17); White Blood Count 19.3 10^3/uL (3.6-10.2)
[2024-05-09 06:46] LABS: Calcium 9.7 mg/dL (8.6-10.3); Creatinine, Serum 0.68 mg/dL (0.67-1.17); Potassium 4.3 mmol/L (3.5-5.0); eGFR CKD-EPI 103.2 (>60)
[2024-05-09] MEDS: Albuterol/Ipratropium NEB.SOL (2.5/0.5 MG) 3 ML NEB.SOLN INH PRN (13:54)
[2024-05-10] MEDS: SPIRIVA Respimat (tiotropium) 2.5 mcg/inh Inhaler INH SCH (08:53)
[2024-05-10] MEDS: Mometasone/Formoter 100/5 MDI INH SCH (08:53)
[2024-05-10] MEDS ORDERED: Albuterol HFA INHALER 8 gm MDI INH PRN (14:50)
[2024-05-11 09:40] LABS: Hematocrit 43.8 % (38-53); Hemoglobin 14.7 g/dL (13.2-16.3); Mean Corpuscular Hemoglobin 32.5 pg (27-33); Mean Corpuscular Hgb Conc 33.5 g/dL (31-36); Mean Corpuscular Volume 97.1 fL (80-97); Mean Platelet Volume 8.9 fL (7.5-11.2); Platelet Count 369 10^3/uL (150-450); Red Blood Count 4.52 10^6/uL (4.06-5.63); Red Cell Distribution Width 13.8 % (12-17); White Blood Count 16.8 10^3/uL (3.6-10.2)
[2024-05-11 10:00] LABS: Calcium 9.5 mg/dL (8.6-10.3); Creatinine, Serum 0.68 mg/dL (0.67-1.17); Magnesium 2.2 mg/dL (1.9-2.7); Potassium 4.3 mmol/L (3.5-5.0); eGFR CKD-EPI 103.2 (>60)
[2024-05-12 09:10] VITALS: BP 159/92
== END 2024-05-12 13:25 | disposition home or self-care (01) | DRG 189 ==
LOC: EDHOLD 16:50 → ED 16:50 → SUATTDRO 05-08 00:02 → MED 05-08 01:42
PROVIDERS: ADMIT Internal Medicine; ATTEND Student in an Organized Health Care Education/Training Program